=== PATIENT | female | born 1955 | race Caucasian/White ===

== ENCOUNTER 2018-01-13 11:17 | Emergency (ER) | payer OTHER ==
[~2018-01-13] VITALS: Ht 170.2 cm; Wt 122.5 kg
[2018-01-13] MEDS ORDERED: TRAMADOL 50 MG50 MG PO (13:50)
[2018-01-13] MEDS ORDERED: NAPROSYN500 MG PO (13:50)
[2018-01-13 14:03] VITALS: BP 152/86
== END 2018-01-13 14:03 | disposition home or self-care (01) ==
LOC: ER 11:17
DX: M16.11 Unilateral primary osteoarthritis, right hip (principal); Z87.891 Personal history of nicotine dependence